=== PATIENT | female | born 1975 | race African-American/Black ===

== ENCOUNTER 2016-07-28 11:40 | Emergency (ER) | payer BC ==
[~2016-07-28] VITALS: Wt 90.6 kg
[~2016-07-28 11:40] MED LIST: DIVA125T14 PO; FLUT9.9S NASAL; GUAI120S26 PO; IBUP-1542 PO; IBUP800T25 PO
[2016-07-28] MEDS ORDERED: IBUP-1542 PO (12:22)
[2016-07-28] MEDS ORDERED: D-ME473S18 PO (12:22)
--- NOTE | 2016-07-28 12:24 | ERD ---
ER Documentation Chief Complaint Date/Time DATE: 07/28/16 TIME: 12:24 Chief Complaint COUGH AND CONGESTION WITH SORE THROAT FOR THE PAST 3 DAYS HPI This 40-year-old female presents with congestion, cough and sore throat for last 2 days. She is here with daughter with similar symptoms. There is no history of chest pain, measured fevers, vomiting, abdominal pain, neck stiffness , rashes. ROS All systems reviewed and are negative except as per history of present illness. Medications Home Meds Active Scripts Dextromethorphan Hb-Promethazine Hcl (Promethazine DM Syrup) 473 Ml Syrup, 5 ML PO Q6H Y for COUGH, #4 OZ Prov:RIVKA AHMADI MD 07/28/16 Ibuprofen* (Motrin*) 600 Mg Tab, 600 MG PO Q6, #20 TAB Prov:RIVKA AHMADI MD 07/28/16 Fluticasone Propionate (Flonase Allergy Relief) 9.9 Ml [place].susp, 1 SPRAY NASAL BID, #1 BOTTLE TO EACH NOSTRIL Prov:ROGELIO OTT PA-C 06/04/16 Ycvgqnntyhh-G-Tvvwhckmdo Hb* (Guaifenesin* DM Syrup) 120 Ml Syrup, 10 ML PO Q4H Y for COUGH, #120 ML Prov:ROGELIO OTT PA-C 06/04/16 Ibuprofen* (Motrin*) 600 Mg Tab, 600 MG PO Q6H Y for PAIN AND OR ELEVATED TEMP, #30 TAB Prov:HIEN MOREAU MD 04/06/16 Ibuprofen* (Motrin*) 800 Mg Tab, 800 MG PO Q6, #30 TAB Prov:GLEN NIELSEN PA-C 03/27/16 Divalproex Sodium* (Depakote*) 125 Mg Tablet., 125 MG PO DAILY, #30 TAB Prov:SEGUNDO MOSQUERA PA-C 10/26/15 Divalproex Sodium* (Depakote*) 125 Mg Tablet.dr, 125 MG PO DAILY, #15 TAB Prov:BALDOMERO C[place] PA-C 10/22/15 Allergies Allergies: Coded Allergies: No Known Allergy (Unverified , 08/27/15) PMhx/Soc History of Surgery: Yes () Anesthesia Reaction: No Hx Neurological Disorder: No Hx Respiratory Disorders: No Hx Cardiac Disorders: No Hx Psychiatric Problems: Yes (anxiety) Hx Miscellaneous Medical Probl: No Hx Alcohol Use: No Hx Substance Use: No Hx Tobacco Use: No Physical Exam Vitals Vital Signs Date Time Temp Pulse Resp B/P Pulse Ox O2 Delivery O2 Flow Rate FiO2 07/28/16 12:00 98.6 68 18 150/85 97 Physical Exam Const: [] Alert, [id number]-[id number]. Head: Atraumatic Eyes: Normal Conjunctiva ENT: Normal External Ears, Nose and Mouth. Neck: Full range of motion..~ No meningismus. Resp: Clear to auscultation bilaterally Cardio: Regular rate and rhythm, no murmurs Abd: Soft, non tender, non distended. Normal bowel sounds Skin: No petechiae or rashes Back: No midline or flank tenderness Ext: No cyanosis, or edema Neur: Awake and alert Psych: Normal Mood and Affect Results 24 hrs Current Medications Medications (Trade) Dose Ordered Sig/Gillian Route PRN Reason Start Time Stop Time Status Last Admin Dose Admin Ibuprofen (Motrin) 600 mg ONCE ONCE PO 07/28/16 12:30 07/28/16 12:31 Procedures/MDM This patient presents with 2 day history of URI symptoms and has a normal exam. She likely has a viral URI. She will treated with promethazine and ibuprofen and observation at home. No evidence of hypoxemia, respiratory distress. The patient was stable with no new complaints during the ER course. Clinically, there is no current evidence to suggest meningitis, sepsis, acute abdomen, pneumonia, acute coronary syndrome, pulmonary embolism, or any other emergent condition appearing to require further evaluation or hospitalization. The patient should certainly return for any new or worsening symptoms per the aftercare instructions. They should otherwise follow-up with her primary care doctor for reevaluation this week. Departure Diagnosis: Primary Impression: URI, acute Condition: Stable Patient Instructions: Uri, Viral, No Abx (Adult) Additional Instructions: Likely viral illness should resolve in 3-5 days. Recheck for new or worsening symptoms with primary care doctor. RIVKA AHMADI MD Jul 28, 2016 12:24
[2016-07-28] MEDS ORDERED: IBUPROFEN 600 MG TAB PO ONE (12:30)
== END 2016-07-28 13:04 | disposition home or self-care (01) ==
LOC: FTE 11:40
DX: J06.9 Acute upper respiratory infection, unspecified (principal)
CPT/HCPCS: 99283; Z7610

== ENCOUNTER 2016-12-07 22:02 | Emergency (ER) | payer SELFPAY ==
[~2016-12-07] VITALS: Wt 96.5 kg
[~2016-12-07 22:02] MED LIST changes: +D-ME473S18 PO
== END 2016-12-08 02:45 | disposition left against medical advice (07) ==
LOC: E/R 22:02
DX: Z53.21 Procedure and treatment not carried out due to patient leaving prior to being seen by health care provider (principal)

== ENCOUNTER 2017-11-16 23:20 | Emergency (ER) | END 2017-11-17 01:38 | disposition home or self-care (01) ==

== ENCOUNTER 2018-01-12 04:19 | Emergency (ER) | END 2018-01-12 05:25 | disposition home or self-care (01) ==

== ENCOUNTER 2018-02-17 20:59 | Emergency (ER) | END 2018-02-17 22:41 | disposition home or self-care (01) ==

== ENCOUNTER 2018-02-23 00:57 | Emergency (ER) | END 2018-02-23 02:47 | disposition home or self-care (01) ==

== ENCOUNTER 2018-03-06 20:17 | Emergency (ER) | END 2018-03-06 21:15 | disposition home or self-care (01) ==

== ENCOUNTER 2019-03-21 21:40 | Emergency (ER) | payer BC ==
[~2019-03-21] VITALS: Ht 160 cm; Wt 90.6 kg
[~2019-03-21 21:40] MED LIST changes: +AMOX500C2 PO; +BEN25 PO; +CALA177S8 TOP; +CEPH-443 PO; +DIVA-48 PO; +DIVA125T PO; -DIVA125T14 PO; +ELIM TOP; +FEXO180T61 PO; +GUAI120S25 PO; -GUAI120S26 PO; +HC30CR25 TOP; +HYDR-843 PO; -IBUP800T25 PO; +IBUP800T48 PO; +LEVE-5 PO; +MED4DP PO
[2019-03-21 22:11] VITALS: Ht 160 cm; Wt 90.6 kg
[2019-03-22 00:34] VITALS: BP 148/82; PULSE 72; RESP 16
== END 2019-03-22 00:35 | disposition home or self-care (01) ==
LOC: FTE 21:40
DX: T14.8XXA Other injury of unspecified body region, initial encounter (principal); W57.XXXA Bitten or stung by nonvenomous insect and other nonvenomous arthropods, initial encounter; Y92.89 Other specified places as the place of occurrence of the external cause
CPT/HCPCS: 99283